=== PATIENT | male | born 1945 | race Caucasian/White ===

== ENCOUNTER 2017-05-13 09:24 | Emergency (ER) | payer OTHER, MEDICARE ==
[~2017-05-13] VITALS: Ht 175.3 cm; Wt 73.5 kg
[~2017-05-13 09:24] MED LIST: ADVIL200 MG OR; ANTIVERT GENERI25 MG PO; BACTRIM DS 8001 TA1 PO; CALCITRATE PO; DILAUDID2 MG PO; NEXIUM40 MG PO; PREDNISONE20 MG PO; RANITIDINE HCL300 M1 PO; SKELAXIN 800MG800 MG PO; ZOFRAN4 MG PO; ZYRTEC10 M3 PO
[2017-05-13] MEDS ORDERED: OMEPRAZOLE40 MG PO (09:29)
--- NOTE | 2017-05-13 09:36 | Emergency Room Report ---
History of Present Illness Time Seen by [id number] Presenting Problem in Triage Pt arrived:Walked Presenting Problem:PT C/O RIGHT SIDE FLANK PAIN THAT STARTED AROUND 0300AM. 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 N Clinical Suspician of Infection? N Mental Status: 1 - Regular (Normal Baseline) Sepsis Risk:Low Sepsis Risk Have you (or family members/close friends) recently traveled outside the [place]? N If Yes, where/when: Have you had exposure to infectious disease within the past month? N TB? Other? Specify: Intermittent right sided flank pain since this AM, longstanding hx of renal calculi, patient of Dr. Leyva, who follows this patient for this as well as other urological issues, including recent cyberknife procedure by Dr. Aguilera at . No abdominal pain, no vomiting or change in stools, no blood from above or below, no fever. Reports some nausea concomitant with onset of pain. ALLERGIES Coded Allergies: Iodinated Contrast- Oral and IV Dye (Iodinated Contrast Media - IV Dye) ( Intermediate, I-RASH 07/05/15) quinine (Intermediate, I-RASH 07/05/15) Home Medications Reported Medications CETIRIZINE HCL (Zyrtec) 10 MG PO DAILY Omeprazole (Omeprazole 40MG) 40 MG PO DAILY #90 History Medical History General CAD? No Angina: No IN: No Hypertension? No Hyperlipidemia? No CHF? No DVT? No PE? No COPD? No Asthma? No Anemia? No GERD? Yes Gastric ulcers? No GI Bleed? No Hernia? Yes Thyroid Problems? No Hypothyroidism? No CVA? No Seizures? No Diabetes? No Renal Insuffiency? No End Stage Renal Disease? No UTI? No Stones? Yes GB Disease: No Nephritic Syndrome? No Asplenia? No Hepatitis? No Sickle Cell Disease? No Arthritis? No Migraines? No Cataracts? No Glaucoma? No MRSA? No HIV? No TB? No Anxiety? No Depression? No Cancer? No More? Yes Additional hx: CHRONS Immunization Hx DT/Tetanus 1-4 Years Ago Flu [id number] Flu Season Pneumonia Received In Past Surgical Hx Previous Surgery?Y Hernia Repair Colon Orthopedic LITHOTRIPSY BACK-RUPT DISK Appendix RT ELBOW Family History Family Hx Diabetes No CAD No Hypertension No Hyperlipidemia No Cancer Yes TB No Social History Smoking Hx Smoker: Never Smoker Tobacco: No Alcohol Alcohol: No Review of Systems All Other Systems Reviewed and Negative Gastrointestinal see HPI Genitourinary see HPI. Physical Exam Vital Signs Vital Signs Date Time Temp Pulse Resp B/P Pulse O2 O2 Flow FiO2 Ox Delivery Rate 05/13 1021 78 16 127/80 98 05/13 0940 16 05/13 0925 98.0 89 16 154/100 98 General Appearance normal appearance, mild distress Eye Exam - bilateral eye normal exam, bilateral eye EOMI Neck normal inspection, full range of motion Respiratory Status Yes: trachea midline, chest symmetrical, non tender chest. No: respiratory distress, tender on palpation, use of accessory muscles, pain on inspiration, pain on expiration, productive cough, non productive cough. Lung Sounds bilateral: normal breath sounds, lungs clear. Cardiovascular normal exam, regular rate/rhythm, no peripheral edema, no gallop, no JVD, no murmur, no rub Gastrointestinal normal bowel sounds, normal exam, non tender, soft, no organomegaly, no pulsatile mass, no rebound Back bowel/bladder continent, gait normal, CVA tenderness (R) Strength 5 Upper Ext (L), 5 Upper Ext (R), 5 Lower Ext (L), 5 Lower Ext (R) Neurologic alert (nonfocal; ambulatory) Glascow Coma Scale Glascow Coma Scale Response Value EYE response: 4 Spontaneously 4 MOTOR response: 6 OBEYS 6 VERBAL response: 5 Oriented & Converses 5 Total 15 Skin intact, normal color, warm/dry Medical Decision Making LABS/Meds/Orders Pt receiving controlled substance in ED? No Charles was queried for this patient? Yes Reference #: [id number] Risks/benefits of using a controlled substance for treatment were discussed w/pt by me Results/Orders Laboratory Tests 05/13/17 1040: Urine Color YELLOW, Urine Appearance CLEAR, Urine pH 6.0, Ur Specific Baylis 1.025, Urine Protein TRACE H, Urine Ketones NEGATIVE, Urine Blood 3+ H, Urine Nitrate NEGATIVE, Urine Bilirubin NEGATIVE, Urine Urobilinogen 0.2, Ur Leukocyte Esterase NEGATIVE, Urine RBC 20-50, Urine WBC NONE, Ur Squamous Epith Cells OCC, Urine Bacteria OCC, Urine Glucose NEGATIVE 05/13/17939: Sodium 140, Potassium 4.0, Chloride 105, Carbon Dioxide 28, BUN 17, Creatinine 2.1 H, Estimated Creat Clear 34 L, Estimated GFR (MDRD) 31, Glucose 104, Calcium 8.3 L, Total Bilirubin 0.4, AST 13 L, ALT 16, Alkaline Phosphatase 90, Total Protein 6.7, Albumin 3.1 L, Globulin 3.6 H, Albumin/Globulin Ratio 0.9 L, WBC 11.7 H, RBC 4.79, Hgb 14.3, Hct 42.8, MCV 89.4, RDW 12.8, Plt Count 273, MPV 7.4, Gran % 83.1 H, Gran # 9.7 H, Lymphocytes % 8.2 L, Monocytes % 7.1, Eosinophils % 1.1, Basophils % 0.5, Lymphocytes # 1.0, Monocytes # 0.8, Eosinophils # 0.1, Basophils # 0.1, PUBS MCHC 33.3, MCH 29.8 Current Medication Orders Sig/Cecilia Start time Last Medication Dose Route Stop Time Status Admin Ketorolac 30 MG ONCE ONE 05/13 930 DC 05/13 Tromethamine IV 05/13 931 0940 Ondansetron HCl 4 MG ONCE ONE 05/13 930 DC 05/13 IV 05/13 931 0940 Sodium Chloride 10 ML PRN PRN 05/13 930 AC IV 05/14 930 Sodium Chloride 1,000 ML .Q1H1M 05/13 930 DC 05/13 IV 05/13 1030 0941 Sodium Chloride 10 ML PRN PRN 05/13 930 AC IV 05/14 930 Orders Procedure Date/time Status DIET-NOTHING BY MOUTH 05/[address] ABD/PELVIS REQ 05/13 931 Active IV SALINE LOCK 05/13 931 Active URINALYSIS/COMPLETE 05/13 931 Complete CBC WITH AUTO DIFF 05/13 931 Complete CHEM 12 PROFILE 05/13 931 Complete XRAY/CT/US XRAY/CT/US CT interpretation by reviewed by me, discussed w/radiologist Time results known: 1031 CT Results abnormal, 5.3 x 4.6 mm calculus R ureter, just to right L4L5, states above UVJ by 10 cm; mod hydronephrosis; numerous other stones seen previously. Evidence of recent radiation and post surgical changes from Crohn's disease; hiatal hernia seen previously, no change. Consult MD Physician Consult Time Called 1102 Reason Pt. Condition, Urology eval/care Comments The patient would very much prefer to see if he could pass this calculus without intervention. His pain is controlled. He has phoned his urologist, Dr. Leyva, who can see him in clinic. Dr. Leyva will confer with Dr. Aguilera regarding disposition and plan, as patient may need surgical intervention tomorrow by Dr. Leyva should the calculus not pass. UA is currently pending. Departure Departure Time of Disposition 1127 Disposition DC Home or Self Care(routine) Clinical Impression Primary Impression: Ureteral calculus Condition STABLE Referrals Autumn GILL,Tony Doshi MD,[facility] Slade (PCP/Family) Patient Instructions Kidney Stones -- Adult Additional Instructions Follow up with Dr. Leyva as per his recommendation. Filter all urine. Rx Percocet. Rx Toradol PO but take sparingly, if at all, as you have hydronephrosis and slightly elevated creatinine. ALTERNATIVELY, take Naproxen, but do not take the Toradol within 12 hours of taking Naproxen. Zofran as needed. Discharge Counseling Counseled pt/family regarding diagnosis, test results, R/B of controlled subst., medications/RX, home care, follow up needs Prescriptions Current Visit Scripts NAPROXEN (NAPROXEN 500MG TAB) 500 MG PO BIDP PRN pain #20 TAB Ondansetron (Zofran 4MG Odt) 4 MG PO Q6HP PRN NAUSEA AND VOMITING #15 ODT KETOROLAC TROMETHAMINE (TORADOL 10MG) 10 MG PO Q8HP PRN pain #3 TAB Do NOT take with Naproxen OXYCODONE HCL/ACETAMINOPHEN (Percocet 10-325 MG Tablet) 1 TAB PO Q4HP PRN pain #20 TAB ED Critical Care Critical Care No at 1131
[2017-05-13 09:49] LABS: HEMOGLOBIN 14.3 g/dL (14.1-18.0); LYMPH % 8.2 % (10-50)
--- OUTSIDE RECORDS SUMMARY | 2017-05-13 09:49 | External Medical Summary Rpt | CCD ---
Demographics Preferred Language [place] Marital Status Unknown Mosque Affiliation Unknown Race Unknown Ethnic Group Unknown Author Author , ROBERTO MEJIA Address Unknown Phone Immunization No patient found.
--- OUTSIDE RECORDS SUMMARY | 2017-05-13 09:49 | External Medical Summary Rpt ---
Author Author ROBERTO Cardenas, [employer] Organization [employer] Address Unknown Phone Unavailable
--- OUTSIDE RECORDS SUMMARY | 2017-05-13 09:49 | External Medical Summary Rpt | CCD ---
Author Author ROBERTO Address Unknown Phone Purpose Continuity of Care Document - through 2016
--- OUTSIDE RECORDS SUMMARY | 2017-05-13 09:49 | External Medical Summary Rpt | CCD ---
Author Author [employer] Organization [employer] Address Unknown Phone Unavailable Purpose Continuity of Care Document - through 2016
--- OUTSIDE RECORDS SUMMARY | 2017-05-13 09:49 | External Medical Summary Rpt | CCD ---
Author Author ROBERTO Address Unknown Phone [email or web address] Purpose Continuity of Care Document - through 2016
--- OUTSIDE RECORDS SUMMARY | 2017-05-13 09:49 | External Medical Summary Rpt | CCD ---
Demographics Preferred Language Yemeni Marital Status Unknown Cheondoism Affiliation Unknown Race Unknown Ethnic Group Unknown Author Author , ROBERTO MEJIA Address Unknown Phone Immunization No patient found.
[2017-05-13 10:53] LABS: URINE BILIRUBIN - DIPSTICK NEGATIVE (NEG); URINE BLOOD 3+ (NEG)
--- NOTE | 2017-05-13 10:59 | RADIOLOGY REPORT PS360 ---
CT ABD PELVIS W/O CONTRAST HISTORY: RIGHT FLANK PAINhistory of kidney stones Patient Age: 71 years: Male Ordering Physician: Bertha Roca MD TECHNIQUE: Helical CT scanning performed the abdomen pelvis with no oral nor IV contrast COMPARISON :Previous CT abdomen 03/19/2016 FINDINGS Most significant is a 5.3 x 4.6 mm calculus seen at the right ureter which yields obstructive uropathy on the right. Mild dilatation of right ureter with mild/moderate hydronephrosis.. This renal calculus located Just to the right of the L4/5 disc level-, as nicely seen on the CT fishing lure assembler view . Otherwise the kidneys demonstrate very numerous punctate calculi. Right kidney: There are a few calculi measuring over 5 mm size with other numerous smaller calculi.. I suspect the current calculus or gross from the upper pole right kidney; other carbone the calculi pattern at right kidney are similar to 2016 except for the upper pole. Large benign-appearing cyst at lower pole right kidney measures 44 mm and is recommended larger but appears benign. There is some minor stranding about the right kidney likely reflecting the obstructive uropathy. Left kidney. Numerous dense calculi throughout left kidney with the several measuring just over 5 mm in size & numerous other smaller calculi measuring less than 4 mm. But similar pattern of calculi versus 2016. Left ureter unremarkable.. Pelvis. Mild diffuse wall thickening the bladder is similar if not a very slightly more evident than on previous study. Could reflect mild cystitis. Prostate appears similar in size measuring up to 55.2 cm transverse dimension. There are now metallic markers at posterior reflecting fiducials from recent radiation therapy of prostate treatment process No retroperitoneal nor pelvic adenopathy. GI tract. Postsurgical changes right colon from previous small bowel base large bowel anastomosis. Unchanged. Scattered diverticuli throughout the left colon. No diverticulitis. Upper normal perhaps mild wall thickness at distal rectum towards anal verge posterior the prostate patient unimpressive but could reflect recent radiation. In this region. There is a large hilar hernia containing at least 60% of stomach. Upper normal wall thickness throughout the stomach is nonspecific and requires correlation but suspect reflects lack of distention.. There is a stable [place] hernia posteriorly at right hemidiaphragm. Bulges from this area into the lower right chest. Liver spleen gallbladder adrenals pancreas unremarkable on this noncontrast study Small density posterior to the upper epigastric region abdominal wall may reflect a previous ventral hernia repair. Prior left inguinal hernia repair suggested. Stable. Lumbar. Degenerative disc changes multiple levels L-spine similar to previous studies mild levoscoliosis., Disc space narrowing at multiple levels of the lower L-spine again noted . IMPRESSION 1. Hydronephrosis/Obstructive uropathy on the right This is due to a 5.3 x 4.6 mm right ureteral calculus, seen on CT fishing lure assembler view right L4/5 disc level 2. Numerous other punctate calculi throughout right & left kidney again noted. Benign renal cyst lower pole right kidney. 3. Prostate appear stable in size but now demonstrates metallic fiducial markers. 4. Question upper normal wall thickness distal rectum, anal verge may reflect recent therapy 5. Stable Postsurgical ileocecal anastomosis region. The 6 Generous hiatal hernia again noted. Upper wall thickness stomach here most likely reflecting lack of distention. Stable [place]dalek hernia on right
[2017-05-13 11:10] LABS: URINE SQUAMOUS CELLS OCC #/hpf (OCC)
[2017-05-13] MEDS ORDERED: NAPROXEN SODIU500 MG PO (11:30)
[2017-05-13] MEDS ORDERED: PERCOCET1 TA1 PO (11:30)
[2017-05-13] MEDS ORDERED: TORADOL10 MG PO (11:30)
[2017-05-13] MEDS ORDERED: ZOFRAN ODT4 MG PO (11:30)
[2017-05-13 11:32] VITALS: BP 127/80
== END 2017-05-13 11:32 | disposition home or self-care (01) ==
LOC: ER 09:24
PROVIDERS: Emergency Medicine
DX: N13.2 Hydronephrosis with renal and ureteral calculous obstruction (principal); Z87.442 Personal history of urinary calculi; Z88.8 Allergy status to other drugs, medicaments and biological substances; K50.90 Crohn's disease, unspecified, without complications
CPT/HCPCS: J2405